=== PATIENT | male | born 1985 | race Two or more races ===

== ENCOUNTER 2024-11-30 10:13 | Emergency (ER) | payer OTHER ==
[~2024-11-30] VITALS: Ht 170.2 cm; Wt 81.6 kg
[2024-11-30] MEDS ORDERED: LORZONE375 MG (10:51)
[2024-11-30] MEDS ORDERED: KETO10TA2 PO (10:52)
[2024-11-30] MEDS ORDERED: KETOROLAC TROMETHAMINE 60 MG VIAL IM ONE (11:30)
[2024-11-30] MEDS ORDERED: ORPHENADRINE CITRATE 30 MG/ML AMPUL IM ONE (11:30)
[2024-11-30] MEDS ORDERED: NORFLEX100MG PO (13:26)
== END 2024-11-30 13:38 | disposition home or self-care (01) ==
LOC: ER 10:49
DX: M54.50 Low back pain, unspecified (principal)